=== PATIENT | female | born 1985 | race Caucasian/White ===

== ENCOUNTER → 2018-03-21 10:38 | Outpatient (CLI) | payer OTHER, SELFPAY ==
--- NOTE | 2018-03-21 10:38 | DT_ITS ---
This patient was seen during an EMR downtime March 21, 2018 - March 28, 2018. This patient may have a combination of paper and electronic documentation or all paper documentation. All documentation is viewable within the e-chart portion of [employer] for each patient visit.
[2018-03-24 18:23] LABS: Internal QC Validated? YES +Cl - CLEAR BKGD; Pregnancy, Urine Negative Negative
== END ==
PROVIDERS: Family Provider Family Medicine; PCP Family Medicine; Visit Provider Physician Assistant
DX: L70.0 Acne vulgaris (principal); L81.1 Chloasma; Z79.899 Other long term (current) drug therapy
CPT/HCPCS: 81025